=== PATIENT | female | born 1990 | race Caucasian/White ===

== ENCOUNTER 2022-06-10 13:06 | Emergency (ER) | payer OTHER ==
[~2022-06-10] VITALS: Ht 167.6 cm; Wt 53.0 kg
[2022-06-10 14:54] VITALS: BP 108/58
== END 2022-06-10 18:04 | disposition home or self-care (01) ==
LOC: ER 13:19
DX: F10.229 Alcohol dependence with intoxication, unspecified (principal); Y90.0 Blood alcohol level of less than 20 mg/100 ml
CPT/HCPCS: 99283